=== PATIENT | male | born 1945 | race Caucasian/White ===

== ENCOUNTER 2018-10-02 08:51 | Day surgery (SDC) | payer MEDICARE, OTHER ==
[2018-10-02] MEDS ORDERED: PROPOFOL 200 MG INJ (10:43)
[2018-10-02] MEDS ORDERED: LIDOCAINE 2% (SDV) 5 ML INJ (10:43)
[2018-10-02] MEDS ORDERED: PROPOFOL 60 ML (10:43)
== END 2018-10-02 14:24 | disposition home or self-care (01) ==
LOC: GIL 08:51
DX: K64.8 Other hemorrhoids (principal); K57.30 Diverticulosis of large intestine without perforation or abscess without bleeding; K44.9 Diaphragmatic hernia without obstruction or gangrene; K21.0 Gastro-esophageal reflux disease with esophagitis; I10 Essential (primary) hypertension; J44.9 Chronic obstructive pulmonary disease, unspecified
CPT/HCPCS: 43239; 88305